=== PATIENT | female | born 1990 | race Two or more races ===

== ENCOUNTER 2021-10-12 09:04 | Emergency (ER) | payer OTHER ==
[~2021-10-12] VITALS: Ht 160 cm; Wt 60.4 kg
--- NOTE | 2021-10-12 09:37 | PHYS DOC ---
Past Medical History Past Medical History: No Pertinent History Past Surgical History: No Surgical History Smoking Status: Never Smoker Alcohol Use: None Drug Use: None General Adult EDM: Chief Complaint: VAGINAL BLEEDING HPI: HPI: Patient is a 31-year-old female that presents today with vaginal bleeding. Patient is Lithuanian-speaking only so all information in the HPI was done using interpretive services. Patient states that she is approximately 8 weeks , she states that this morning when she woke up and she went to the bathroom she wiped and she noticed some blood on the toilet tissue, she states she called [facility] where she receives her care and they instructed her to come to the emergency department. Patient denies abdominal pain, dysuria or clots passage. Patient states she is a 6 para 4 AB 1. Patient states she was seen in the clinic on Friday, she states she had an ultrasound done at that time that showed an intrauterine , she also had blood work done at that time. Patient states she has not had any sexual intercourse in the last 24 hours or has placed anything in her vagina in the last 24 hours. Review of Systems: Review of Systems: Constitutional: Denies fever or chills. [] Eyes: Denies change in visual acuity. [] HENT: Denies nasal congestion or sore throat. [] Respiratory: Denies cough or shortness of breath. [] Cardiovascular: Denies chest pain or edema. [] GI: Denies abdominal pain, nausea, vomiting, bloody stools or diarrhea. [] /OPERATING COST CLERK: Denies dysuria, VAGINAL BLEEDING[] Musculoskeletal: Denies back pain or joint pain. [] Integument: Denies rash. [] Neurologic: Denies headache, focal weakness or sensory changes. [] Endocrine: Denies polyuria or polydipsia. [] Lymphatic: Denies swollen glands. [] Psychiatric: Denies depression or anxiety. [] Heart Score: C/O Chest Pain: N/A Risk Factors: Risk Factors: DM, Current or recent (<one month) smoker, HTN, HLP, family histo ry of CAD, obesity. Risk Scores: Score 0 - 3: 2.5% MACE over next 6 weeks - Discharge Home Score 4 - 6: 20.3% MACE over next 6 weeks - Admit for Clinical Observation Score 7 - 10: 72.7% MACE over next 6 weeks - Early Invasive Strategies Allergies: Allergies: Allergies Coded Allergies Type Severity Reaction Last Updated Verified No Known Drug Allergies 10/12/21 No Physical Exam: PE: Constitutional: Well developed, well nourished, no acute distress, non-toxic appearance. [] HENT: Normocephalic, atraumatic, bilateral external ears normal, oropharynx moist, no oral exudates, nose normal. [] Eyes: PERRLA, EOMI, conjunctiva normal, no discharge. [] Neck: Normal range of motion, no tenderness, supple, no stridor. [] Cardiovascular:Heart rate regular rhythm, no murmur [] Lungs & Thorax: Bilateral breath sounds clear to auscultation [] Abdomen: Bowel sounds normal, soft, no tenderness, no masses, no pulsatile masses. [] Skin: Warm, dry, no erythema, no rash. [] Back: No tenderness, no CVA tenderness. [] Extremities: No tenderness, no cyanosis, no clubbing, ROM intact, no edema. [] Neurologic: Alert and oriented X 3, normal motor function, normal sensory function, no focal deficits noted. [] Psychologic: Affect normal, judgement normal, mood normal. [] Current Patient Data: Labs: Laboratory Tests Test 10/12/21 09:10 10/12/21 09:16 10/12/21 10:15 Urine Collection Type Unknown Urine Color Yellow Urine Clarity Hazy Urine pH 6.0 Urine Specific Mcbee >=1.030 Urine Protein Negative mg/dL Urine Glucose (UA) Negative mg/dL Urine Ketones (Stick) Negative mg/dL Urine Blood Trace Urine Nitrite Negative Urine Bilirubin Negative Urine Urobilinogen Dipstick 0.2 mg/dL Urine Leukocyte Esterase Small Urine RBC 0 /HPF Urine WBC 5-10 /HPF Urine Squamous Epithelial Cells Occ /LPF Urine Bacteria Few /HPF Urine Mucus Mod /LPF Bedside Urine HCG, Qualitative Hcg positive White Blood Count 4.8 x10^3/uL Red Blood Count 3.90 x10^6/uL Hemoglobin 12.0 g/dL Hematocrit 35.7 % Mean Corpuscular Volume 92 fL Mean Corpuscular Hemoglobin 31 pg Mean Corpuscular Hemoglobin Concent 34 g/dL Red Cell Distribution Width 13.0 % Platelet Count 178 x10^3/uL Neutrophils (%) (Auto) 69 % Lymphocytes (%) (Auto) 22 % Monocytes (%) (Auto) 7 % Eosinophils (%) (Auto) 2 % Basophils (%) (Auto) 1 % Neutrophils # (Auto) 3.3 x10^3/uL Lymphocytes # (Auto) 1.0 x10^3/uL Monocytes # (Auto) 0.3 x10^3/uL Eosinophils # (Auto) 0.1 x10^3/uL Basophils # (Auto) 0.0 x10^3/uL Maternal Serum HCG Beta Subunit 85574 mIU/mL Laboratory Tests Test 10/12/21 09:16 POC Urine HCG, Qualitative Hcg positive (Negative) Vital Signs: Vital Signs Date Time Temp Pulse Resp B/P (MAP) Pulse Ox O2 Delivery O2 Flow Rate FiO2 10/12/21 09:16 98.1 89 18 120/70 (87) 99 Room Air 98.1 EKG: EKG: [] Radiology/Procedures: Radiology/Procedures: REASON: vaginal bleeding PROCEDURE: OB < 14 WKS EXAMINATION: US OB <14 WKS +TV, 10/12/2021 9:33 AM CLINICAL INDICATION: Vaginal bleeding, . Gestational age by LMP 10 weeks 6 days. TECHNIQUE: Grayscale, color and spectral Doppler ultrasound images of the pelvis via first trimester OB protocol COMPARISON: None. FINDINGS: The uterus measures 13.9 x 9.0 x 7.2 cm. There is a single intrauterine gestational sac containing an embryo with crown-rump length of 5.36 cm, consistent with gestational age 12 weeks 0 days. cardiac activity is seen with heart rate of 157 bpm. A yolk sac is visualized. No subchorionic hemorrhage seen. The cervix measures 4.2 cm. Sonographic EDC 04/26/2022. The right ovary measures 4.4 x 2.3 x 2.5. The left ovary measures 3.0 x 3.4 x 2.0 cm. Intact blood flow to both ovaries. No adnexal mass or free fluid. IMPRESSION: Single living intrauterine with gestational age by ultrasound 12 weeks 0 days. Sonographic EDC 04/26/2022. Electronically signed by: Lynda Ramirez MD (10/12/2021 10:18 AM) [id number][] Course & Med Decision Making: Course & Med Decision Making Pertinent Labs and Imaging studies reviewed. (See chart for details) 1140 I reviewed radiological and laboratory results with patient using interpretive services did inform her she was approximately 12 weeks along that her lab values are stable at this time, she needs to call her clinic at [facility] to have follow-up next week for further management of her . Patient was instructed to rest over the weekend and to not put anything in her vagina and avoid sexual activity. Patient was also informed she had a urinary tract infection and that a prescription will be sent for her to get filled, patient verbalized understanding of this and is agreeable to the plan of care. Dragon Disclaimer: Dragon Disclaimer: This electronic medical record was generated, in whole or in part, using a voice recognition dictation system. Departure Departure Impression: Primary Impression: Vaginal bleeding before 22 weeks gestation Additional Impression: UTI (urinary tract infection) during Qualified Codes: O23.41 - Unspecified infection of urinary tract in , first trimester Disposition: HOME / SELF CARE / HOMELESS Condition: STABLE Referrals: JOE RAJAN MD Patient Instructions: - Urinary Tract Infection, Vaginal Bleeding During , [id number] Additional Instructions: Macrobid take 1 tablet twice daily for 7 full days for urinary tract infection Rest over the weekend, do not put anything into your vagina and no sexual activity until you are followed up by your clinic next week Follow-up next week with [facility] your clinic for your care for further management of your Return to the emergency department if you have increased vaginal bleeding, and passage of tissue. Increase by mouth fluids making sure you stay well-hydrated. Scripts Nitrofurantoin Monohyd/M-Cryst (MACROBID 100 MG CAPSULE) 100 Mg Capsule 1 CAP PO BID for 7 Days, #14 CAP 0 Refills Prov: MARIAMA GONZALEZ PLUSH BRUSHER 10/12/21 MARIAMA GONZALEZ PLUSH BRUSHER Oct 12, 2021 09:37
[2021-10-12 10:16] LABS: CLARITY,URINE HAZY; COLOR,URINE YELLOW
[2021-10-12 10:17] LABS: BILIRUBIN,URINE NEGATIVE (NEG); NITRITE,URINE NEGATIVE (NEG); PROTEIN,URINE NEGATIVE (NEG-TRACE); UROBILINOGEN,URINE 0.2 mg/dL (0.2 mg/dL)
--- NOTE | 2021-10-12 10:20 | RAD ---
EXAMINATION: US OB <14 WKS +TV, 10/12/2021 9:33 AM CLINICAL INDICATION: Vaginal bleeding, . Gestational age by LMP 10 weeks 6 days. TECHNIQUE: Grayscale, color and spectral Doppler ultrasound images of the pelvis via first trimester OB protocol COMPARISON: None. FINDINGS: The uterus measures 13.9 x 9.0 x 7.2 cm. There is a single intrauterine gestational sac containing an embryo with crown-rump length of 5.36 cm, consistent with gestational age 12 weeks 0 days. car diac activity is seen with heart rate of 157 bpm. A yolk sac is visualized. No subchorionic hemorrhag e seen. The cervix measures 4.2 cm. Sonographic EDC 04/26/2022. The right ovary measures 4.4 x 2.3 x 2.5. The left ovary measures 3.0 x 3.4 x 2.0 cm. Intact blood fl ow to both ovaries. No adnexal mass or free fluid. IMPRESSION: Single living intrauterine with gestational age by ultrasound 12 weeks 0 days. Sonographic EDC 04/26/2022. Electronically signed by: Lynda Ramirez MD (10/12/2021 10:18 AM) [id number]
[2021-10-12 10:21] LABS: RBC,URINE 0 /HPF (0-2)
[2021-10-12 10:22] LABS: BACTERIA,URINE FEW /HPF (0-FEW)
[2021-10-12 10:22] LABS: BASO % 1 % (0-3); EOS # 0.1 x10^3/uL (0.0-0.7); EOS % 2 % (0-3); HEMATOCRIT 35.7 % (36.0-47.0); LYMPH % 22 % (24-48); MEAN CORPUSCULAR HEMOGLOBIN 31 pg (25-35); MEAN CORPUSCULAR HGB CONC 34 g/dL (31-37); MEAN CORPUSCULAR VOLUME 92 fL (79-100); MONO # 0.3 x10^3/uL (0.0-1.1); MONO % 7 % (0-9); NEUT # 3.3 x10^3/uL (1.8-7.7); NEUT % 69 % (31-73); PLATELET COUNT 178 x10^3/uL (140-400); WHITE BLOOD COUNT 4.8 x10^3/uL (4.0-11.0)
[2021-10-12] MEDS ORDERED: NITR100C62 PO (11:44)
[2021-10-12 12:19] VITALS: BP 119/82
== END 2021-10-12 12:19 | disposition home or self-care (01) ==
LOC: ER 09:04
DX: O23.41 Unspecified infection of urinary tract in pregnancy, first trimester (principal); N39.0 Urinary tract infection, site not specified; O46.91 Antepartum hemorrhage, unspecified, first trimester; Z3A.12 12 weeks gestation of pregnancy
CPT/HCPCS: 36415; 76801; 81001; 81025; 84702; 85025; 86850; 86900; 86901; 87086; 99284